=== PATIENT | female | born 1975 | race Caucasian/White ===

== ENCOUNTER 2021-08-07 00:56 | Inpatient (IN) | payer OTHER ==
[~2021-08-07] VITALS: Ht 162.6 cm; Wt 131.5 kg
[2021-08-07] MEDS ORDERED: ACET500 PO (02:47)
[2021-08-07] MEDS ORDERED: Ventolin/Prove6.7 GM INH (02:49)
[2021-08-07] MEDS ORDERED: IPRAT-ALBUT 0.5-3 ML INH (02:50)
[2021-08-07] MEDS ORDERED: QVAR REDIHALE10.6 G3 INH (02:50)
[2021-08-07] MEDS ORDERED: ZYRTEC10 M2 PO (02:51)
[2021-08-07] MEDS ORDERED: OMEP20ER PO (02:51)
--- NOTE | 2021-08-07 02:53 | NUR ---
PT with covid 19 arrived 0155 from [facility] with airlift due to no ground transport for tx of covid 19 hypoxia. Transfer report from Harjinder SUN RN at [facility]. PT has CT Pulmonary angiogram neg for PE but shows some lung nodules. Ex smoker PT quit [address] LEVY for admission orders twice await response. Baseline asthma with MDI use & RX. Hx of bronchitis.
[2021-08-07 04:07] LABS: BASOPHILS ABSOLUTE AUTO 0.02 K/mm3 (0.00-0.23); BASOPHILS PERCENT AUTO 0 % (0-2); EOSINOPHILS PERCENT AUTO 0 % (0-6); Hematocrit 39.7 % (33.0-51.0); Hemoglobin 12.7 g/dL (11.5-16.0); IMMATURE GRAN ABSOLUTE AUTO 0.08 K/mm3 (0.00-0.10); IMMATURE GRAN PERCENT AUTO 1 % (0-1); LYMPHOCYTES ABSOLUTE AUTO 0.66 K/mm3 (0.84-5.20); LYMPHOCYTES PERCENT AUTO 6 % (21-46); MONOCYTES ABSOLUTE AUTO 0.24 K/mm3 (0.16-1.47); MONOCYTES PERCENT AUTO 2 % (4-13); Mean Corpuscular HGB 28.2 pg (26.0-34.0); Mean Corpuscular Volume 88 fL (80-100); Mean Platelet Volume 8.6 fL (9.1-12.4); NEUTROPHILS ABSOLUTE AUTO 9.61 K/mm3 (1.96-9.15); NEUTROPHILS PERCENT AUTO 91 % (41-73); Platelet Count 379 K/mm3 (150-400); RDW Coefficient Variation 13.6 % (11.7-14.2); White Blood Cell Count 10.61 K/mm3 (4.00-11.30)
[2021-08-07 04:32] LABS: Albumin, Blood 3.4 g/dL (3.4-5.0); Albumin/Globulin Ratio 0.7 (0.8-1.8); Bilirubin, Total 0.3 mg/dL (0.1-1.0); Bun/Creatinine Ratio 14.9 (12.0-20.0); Calcium, Blood 9.3 mg/dL (8.5-10.1); Creatinine, Blood 0.61 mg/dL (0.40-1.00); Globulin, Blood 5.2 g/dL (2.2-4.0); Potassium, Blood 3.9 mmol/L (3.5-5.5); Total Protein, Blood 8.6 g/dL (6.4-8.2)
--- NOTE | 2021-08-07 17:08 | NUR ---
SUMMARY- PT A/O X4. INDEPENDANT TO BATHROOM. OXYGEN 2-3L. DYSPNEA AND TACHYCARDIA INTO 150'S WITH ACTIVITY. DESATS WITHOUT O2 INTO LOW 80'S AND RECOVERS QUICKLY. LUNGS DIM IN BASES, UPPER EXP WHEEZE INCREASED WITH ACTIVITY. NEBULIZER ONCE TODAY ,HELPFUL TO RELEIVE WHEEZE. PT ENC TO COUGH AND CLEAR SECRETIONS. MOD AMOUNT OF CLEAR. FREQ COUGH. CONT PULSE OX, FREQ 92% AT REST ON 2L. HAVING LOOSE STOOL. SENT CX. TOLERATING FOOD AND FLUIDS, DENIES NAUSEA.
[2021-08-07 20:10] LABS: Adenovirus F 40/41 Not Detected (NOT DETECT); Astrovirus Not Detected (NOT DETECT); Campylobacter Sp Not Detected (NOT DETECT); Cryptosporidium Not Detected (NOT DETECT); Cyclospora Cayetanensis Not Detected (NOT DETECT); E. Coli O157 Not Detected (NOT DETECT); Entamoeba Histolytica Not Detected (NOT DETECT); Enteroaggregative E. coli-EAEC Not Detected (NOT DETECT); Enteropathogenic E. coli-EPEC Not Detected (NOT DETECT); Enterotoxigenic E. coli-ETEC Not Detected (NOT DETECT); Giardia Lamblia Not Detected (NOT DETECT); Norovirus GI/GII Not Detected (NOT DETECT); Plesiomonas Shigelloides Not Detected (NOT DETECT); Rotavirus A Not Detected (NOT DETECT); Salmonella Sp Not Detected (NOT DETECT); Sapovirus Not Detected (NOT DETECT); Shiga Toxin-prod E. coli-STEC Not Detected (NOT DETECT); Shigella/Enteroin E. coli-EIEC Not Detected (NOT DETECT); Vibrio Cholerae Not Detected (NOT DETECT); Vibrio Sp Not Detected (NOT DETECT); Yersinia Enterocolitica Not Detected (NOT DETECT)
--- NOTE | 2021-08-08 05:25 | NUR ---
PT SLEPT THROUGH THE NIGHT, HEART RATE WNL.
--- NOTE | 2021-08-08 18:29 | NUR ---
SUMMARY- PT A/O X4. INDEPENDANT IN ROOM. ACTIVITY TO BATHROOM IS ALL SHE TOLERATES WITHOUT GETTING SOB. DID HAVE A SHOWER TODAY AND TOLERATED THAT ACTIVITY WITHOUT OXYGEN FOR ABOUT 5 MINUTES, STATES SHE BECAME MOD DYSPNIC AND RECOVERED WITH OXYGEN IN A FEW MINUTES. CONT WITH FREQ BARDING COUGH, SM AMOUNT OF SECRETIONS. LUNGS GET WHEEZY AND NEBS PRN HELPFUL- PT ALSO HAS AN ASTHMA HX AND MOM STATES SHE IS ALWAYS WHEEZY EVEN BEFORE COVID. PT WOULD BENEFIT FROM LONG ACTING STEROID BUT QUIT TAKING IT AFTER SHE QUIT GOING TO PULM CLINIC IN HER AREA. SOMETHING TO CONSIDER BEFORE DC. PT TOLERATING PO FOOD AND FLUID. ROBOTUSSIN FOR COUGH HELPFUL.
--- NOTE | 2021-08-09 04:36 | NUR ---
PT ON ROOM AIR FOR MOST OF THE NIGHT AND SLEEPING ON HER STOMACH. OXYGEN REAPPLIED FOR TWO HOURS AFTER PATIENT HAD A COUGHING FIT WITH OXYGEN HOOVERING AROUND 85%.
[2021-08-09] MEDS ORDERED: C COMPLEX1000 M1 PO (12:00)
[2021-08-09] MEDS ORDERED: Q-Tussin100 MG/5 M PO (12:06)
[2021-08-09] MEDS ORDERED: VITAMIN D5000 UNIT PO (12:06)
[2021-08-09] MEDS ORDERED: ZINC220 PO (12:07)
[2021-08-09] MEDS ORDERED: DECADRON6 M1 PO (12:08)
[2021-08-09] MEDS ORDERED: XARELTO10 M1 PO (12:09)
[2021-08-09] MEDS ORDERED: FLUTICASONE-SA1 EAC1 INH (12:18)
--- NOTE | 2021-08-09 15:01 | NUR ---
DISCHARGE REVIEWED WITH PT. VERBALIZED UNDERSTANDING MEDS AND INST. IV PULLED INTACT. TELE REMOVED AND RETURNED. PT WHEELED TO DOOR AT 1450
== END 2021-08-09 14:50 | disposition home or self-care (01) | DRG 177 ==
LOC: MEDS 00:56
PROVIDERS: Internal Medicine; Student in an Organized Health Care Education/Training Program; ADMIT Internal Medicine
PROC: 3E03329 Introduction of Other Anti-infective into Peripheral Vein, Percutaneous Approach (ICD-10-PCS; 2021-08-07)
PROC: XW033E5 Introduction of Remdesivir Anti-infective into Peripheral Vein, Percutaneous Approach, New Technology Group 5 (ICD-10-PCS; principal; 2021-08-08)
DX: U07.1 COVID-19 (principal); J12.82 Pneumonia due to coronavirus disease 2019; J96.01 Acute respiratory failure with hypoxia; Z87.891 Personal history of nicotine dependence; I10 Essential (primary) hypertension; J45.909 Unspecified asthma, uncomplicated; Z79.51 Long term (current) use of inhaled steroids; Z79.899 Other long term (current) drug therapy; Z23 Encounter for immunization
CPT/HCPCS: 36415; 80053; 83605; 84145; 85025; 87507; 94640; 94762; A9270; J0248; J0696; J1100; J1650; J7040; J7050